=== PATIENT | female | born 1990 | race Caucasian/White ===

== ENCOUNTER 2017-10-02 17:01 | Outpatient (CLI) | payer OTHER ==
--- NOTE | 2017-10-03 13:16 | Ultrasound Report ---
PELVIC ULTRASOUND: 10/02/2017 CLINICAL INDICATION: Right pelvic pain. TECHNIQUE: Transabdominal pelvic ultrasound performed for global evaluation. Transvaginal pelvic ultr asound performed for detailed evaluation. Real-time scanning performed and static images obtained. FINDINGS: The uterus is retroverted, measuring 8.9 x 5.5 x 4.1 cm. The endometrial echo complex jose ures 12 mm. No focal myometrial lesion is present. The right ovary measures 3.5 x 2.4 x 1.8 cm, and t he left ovary measures 3.6 x 1.8 x 1.4 cm. Both ovaries are normal. No free fluid is present. IMPRESSION: NORMAL PELVIC ULTRASOUND. JOB #: [id number] EXT JOB #:[id number]
== END 2017-10-02 17:02 | disposition home or self-care (01) ==
LOC: DI 17:01
PROVIDERS: ATTEND Family Medicine
DX: R10.2 Pelvic and perineal pain (principal)
CPT/HCPCS: 76830; 76856

== ENCOUNTER 2018-02-12 08:00 | Outpatient (CLI) | payer MEDICAID, OTHER ==
[2018-02-12 18:58] LABS: BASOPHILS # (AUTO) 0.1 10^3/uL (0.0-0.1); BASOPHILS % (AUTO) 0.7 %; EOSINOPHILS # (AUTO) 0.1 10^3/uL (0.0-0.7); EOSINOPHILS % (AUTO) 1.5 %; HGB - HEMOGLOBIN 14.5 g/dL (12.0-16.0); LYMPHOCYTES # (AUTO) 2.5 10^3/uL (1.5-3.5); MEAN CORPUSCULAR HEMOGLOBIN 28.6 pg (27.0-31.0); MEAN CORPUSCULAR HGB CONC 33.8 g/dL (32.0-36.0); MEAN CORPUSCULAR VOLUME 84.9 fL (81.0-99.0); MEAN PLATELET VOLUME 9.3 fL (7.9-10.8); MONOCYTES # (AUTO) 0.5 10^3/uL (0.0-1.0); MONOCYTES % (AUTO) 6.4 %; NEUTROPHILS # (AUTO) 4.4 10^3/uL (1.5-6.6); NEUTROPHILS % (AUTO) 58.4 %; PLT - PLATELET COUNT 256 10^3/uL (130-450); RED BLOOD COUNT 5.06 10^6/uL (4.20-5.40); RED CELL DISTRIBUTION WIDTH 12.5 % (12.0-15.0); WHITE BLOOD COUNT 7.5 x10^3/uL (4.8-10.8)
[2018-02-12 19:24] LABS: HB2 TOTAL 15.9 g/dL; HEMOGLOBIN A1C 1.08 g/dL; HEMOGLOBIN A1C % 8.4 % (4.6-6.2)
[2018-02-12 19:27] LABS: ALBUMIN 4.2 g/dL (3.2-5.5); ALBUMIN/GLOBULIN RATIO 1.5 (1.0-2.2); ALKALINE PHOSPHATASE 73 IU/L (42-121); ALT ALANINE AMINOTRANSFERASE 24 IU/L (10-60); AST ASPARTATE AMINOTRANSFERASE 23 IU/L (10-42); BILIRUBIN,TOTAL 0.9 mg/dL (0.2-1.0); BUN - BLOOD UREA NITROGEN 11 mg/dL (6-20); CARBON DIOXIDE - CO2 25 mmol/L (21-32); CHLORIDE 101 mmol/L (101-111); CHOL/HDL RATIO 4.6 (<4.4); CHOLESTEROL 210 mg/dL; CREATININE 0.5 mg/dL (0.4-1.0); GFR - MDRD 150 (>89); GLUCOSE 202 mg/dL (70-100); HDL CHOLESTEROL 46 mg/dL; LDL CHOLESTEROL,CALCULATED 137 mg/dL; SODIUM 135 mmol/L (135-145); VLDL CHOLESTEROL 27 mg/dL
== END 2018-02-12 08:01 ==
LOC: LAB.N 08:00
PROVIDERS: ATTEND Nurse Practitioner
DX: E10.9 Type 1 diabetes mellitus without complications (principal); R03.0 Elevated blood-pressure reading, without diagnosis of hypertension
CPT/HCPCS: 36415; 80053; 80061; 82043; 83036; 83721; 84443; 85025

== ENCOUNTER 2018-03-05 08:00 | Outpatient (CLI) | payer MEDICAID | END 2018-03-05 08:01 | LOC: LAB.R 08:00 | PROVIDERS: ATTEND Obstetrics & Gynecology | DX: Z11.3 Encounter for screening for infections with a predominantly sexual mode of transmission (principal) | CPT/HCPCS: 87491; 87591 ==